=== PATIENT | female | born 1935 | race Caucasian/White ===

== ENCOUNTER 2018-05-08 21:09 | Emergency (ER) | payer OTHER ==
[~2018-05-08] VITALS: Ht 157.5 cm; Wt 69.4 kg
[~2018-05-08 21:09] MED LIST: ASPIRIN PO; BIOTIN5 M1 PO; CLOPIDOGREL; COSOPT EYE DROPS5 ML OP; KEFLEX500 MG PO; LISINOPRIL-HCT1 EAC1 PO; LUMIGAN2.5 ML OP; MULTIVITAMINS; NITROSTAT0.4 MG SL; NORCO 5-325 TA1 EACH PO; NORVASC10 MG PO; TOPROL XL100 MG PO
[2018-05-08] MEDS ORDERED: ADVAIR HFA 230M12 GM (21:31)
[2018-05-08] MEDS ORDERED: ASPIR 8181 M1 (21:32)
[2018-05-08] MEDS ORDERED: ATORVASTATIN CA40 MG (21:33)
[2018-05-08] MEDS ORDERED: IMDUR 30 MG TAB30 M1 (21:34)
[2018-05-08] MEDS ORDERED: IBUPROFEN 600600 M1 PO (22:30)
[2018-05-08] MEDS ORDERED: NORCO 5-325 TA1 EACH PO (22:30)
[2018-05-08 22:52] VITALS: BP 146/56
== END 2018-05-08 22:54 | disposition home or self-care (01) ==
LOC: M.ERS 21:09
DX: S32.502A Unspecified fracture of left pubis, initial encounter for closed fracture (principal); S32.592A Other specified fracture of left pubis, initial encounter for closed fracture; W19.XXXA Unspecified fall, initial encounter; Y93.89 Activity, other specified; Y92.89 Other specified places as the place of occurrence of the external cause; Y99.8 Other external cause status; I10 Essential (primary) hypertension; I25.10 Atherosclerotic heart disease of native coronary artery without angina pectoris; Z90.49 Acquired absence of other specified parts of digestive tract; Z90.710 Acquired absence of both cervix and uterus; Z98.62 Peripheral vascular angioplasty status; Z95.811 Presence of heart assist device; Z88.8 Allergy status to other drugs, medicaments and biological substances

== ENCOUNTER 2020-05-21 18:35 | Emergency (ER) | payer MEDICARE ==
[~2020-05-21] VITALS: Ht 157.5 cm; Wt 63.5 kg
[~2020-05-21 18:35] MED LIST changes: +ADVAIR HFA 230M12 GM; +CHILDREN'S ASPI81 M1 PO; +IBUPROFEN 600600 M1 PO; +IMDUR 30 MG TAB30 M1; +LIPITOR40 MG PO; -LISINOPRIL-HCT1 EAC1 PO; +LISINOPRIL20 MG PO; -TOPROL XL100 MG PO; +TOPROL XL50 MG PO
[2020-05-21] MEDS ORDERED: ELIQUIS2.5 MG PO (18:47)
[2020-05-21] MEDS ORDERED: ALPHAGAN P15 ML OPHTHALMIC (18:48)
[2020-05-21] MEDS ORDERED: LEVO-T25 MCG PO (18:48)
[2020-05-21] MEDS ORDERED: XALATAN2.5 M1 OPHTHALMIC (18:49)
[2020-05-21] MEDS ORDERED: TIMOPTIC5 ML OPHTHALMIC (18:49)
[2020-05-21] MEDS ORDERED: KEFLEX500 M1 PO (20:16)
[2020-05-21 20:35] VITALS: BP 154/43
== END 2020-05-21 20:35 | disposition home or self-care (01) ==
LOC: M.ERS 18:35
DX: S51.011A Laceration without foreign body of right elbow, initial encounter (principal); S16.1XXA Strain of muscle, fascia and tendon at neck level, initial encounter; S09.90XA Unspecified injury of head, initial encounter; I10 Essential (primary) hypertension; I25.10 Atherosclerotic heart disease of native coronary artery without angina pectoris; Z90.49 Acquired absence of other specified parts of digestive tract; Z90.710 Acquired absence of both cervix and uterus; Z95.5 Presence of coronary angioplasty implant and graft; Z95.0 Presence of cardiac pacemaker; Z88.8 Allergy status to other drugs, medicaments and biological substances; W18.39XA Other fall on same level, initial encounter; Y93.89 Activity, other specified; Y92.89 Other specified places as the place of occurrence of the external cause; Y99.8 Other external cause status

== ENCOUNTER 2020-09-23 16:14 | Inpatient (IN) | payer MEDICARE ==
[~2020-09-23] VITALS: Ht 157.5 cm; Wt 62.8 kg
--- NOTE | ~2020-09-23 | CON ---
[address] [address] CONSULTATION Name: NATHANIEL YUSUF Room: [address] IN .R.#: [id number] Admission: 09/23/20 Attend Phys: Nghia Livingston MD Discharge: Date of : 37 Report #: [id number] THIS REPORT FOR: //name// cc: Alejandro Carbajal MD, Matthew W. MD ~ DATE OF SERVICE: 09/24/2020 HISTORY OF PRESENT ILLNESS: This is a pleasant 85-year-old female with past medical history of CHF, coronary artery disease; AFib, on chronic anticoagulation, who presented to my clinic yesterday with chief complaints of dark tarry stools. The patient had reported the dark tarry stools for a week and she reports having about 2 bowel movements per day. She denies any abdominal pain, nausea, vomiting. The patient did report extreme fatigue, dizziness and lethargy. The patient looked pale and chronically ill and was therefore referred to an inpatient admission to [facility]. In the ER in addition to anemia, the patient was found to have profound hyponatremia with a sodium of 115 on presentation. The patient continues to report weakness in the morning today. PAST MEDICAL HISTORY: Coronary artery disease, atrial fibrillation, on chronic anticoagulation, CHF. PAST SURGICAL HISTORY: The patient has had pacemaker placed recently. Prior to that, has had a remote history of appendectomy, tonsillectomy, hysterectomy. SOCIAL HISTORY: The patient denies smoking, alcohol or recreational drug use. FAMILY HISTORY: No family history of colon cancer or [place] related neoplasia. REVIEW OF SYSTEMS: Comprehensive 10-point review of systems is negative except for what was mentioned in the HPI. PHYSICAL EXAMINATION: VITAL SIGNS: Temperature 36.6, pulse rate 60, respirations 14, blood pressure 121/49, pulse ox 96%. GENERAL: The patient is alert, awake, oriented x 3. HEENT: Pupils are equal, round, reactive to light and accommodation. Mucous membranes are moist. There is no congestion. LUNGS: Clear to auscultation bilaterally. CARDIOVASCULAR: Rate and rhythm regular, S1, S2 present. ABDOMEN: Soft. There is no distention, guarding or rigidity. EXTREMITIES: Warm, well perfused. LABORATORY DATA: Hemoglobin 8.0, hematocrit 23.6, platelet count 179, [place] [address] CONSULTATION Name: NATHANIEL YUSUF Room: [address]#: [id number] Admission: 09/23/20 Attend Phys: Nghia Livingston MD Discharge: Date of : 37 Report #: [id number] 6.8. Sodium 125, potassium 4.4, chloride 94, bicarbonate 25, BUN 17, creatinine 1.2. ASSESSMENT AND PLAN: 1. Pleasant 85-year-old female on chronic anticoagulation, presenting with melena. The patient also noted to have profound hyponatremia. Since patient's sodium is only 125, I would defer elective endoscopy until it is at least 130. Place the patient on a regular diet today and hopefully with that her sodium should improve and we can perform the endoscopy tomorrow. 2. Hyponatremia. The patient reports she was found to be profoundly hypothyroid when she was diagnosed with hyponatremia last year at [facility]. She is unsure if she is taking her thyroid medication. I would recommend checking it in the morning. Thank you for this consultation. By: 1121 [id number] Cade MD /akhil
[~2020-09-23 16:14] MED LIST changes: +ALPHAGAN P15 ML OPHTHALMIC; +ASPIR 8181 M1; +ATORVASTATIN CA40 MG; -CHILDREN'S ASPI81 M1 PO; +ELIQUIS2.5 MG PO; +KEFLEX500 M1 PO; +LEVO-T25 MCG PO; -LIPITOR40 MG PO; +TIMOPTIC5 ML OPHTHALMIC; +XALATAN2.5 M1 OPHTHALMIC
[2020-09-23 16:38] VITALS: BP 150/50
[2020-09-23] MEDS ORDERED: OMEPRAZOLE20 M1 PO (16:45)
[2020-09-23 17:07] LABS: ABSOLUTE EOSINOPHILS 0.1 thou/uL (0.0-0.7); ABSOLUTE LYMPHOCYTES 1.8 thou/uL (0.8-5.3); ABSOLUTE MONOCYTES 0.8 thou/uL (0.0-1.2); ABSOLUTE NEUTROPHILS 6.9 thou/uL (1.6-8.1); BASOPHILS 0.4 %; EOSINOPHILS 0.6 %; HEMATOCRIT 28.5 % (37.0-47.0); HEMOGLOBIN 9.7 gm/dL (12.0-15.0); LYMPHOCYTES 18.5 %; MCH 31.1 pg (26.0-34.0); MCHC 33.9 g/dL (28.0-37.0); MCV 91.7 fL (80.0-100.0); MONOCYTES 8.4 %; MPV 8.4 fl. (7.2-11.1); NUCLEATED RBCS 0 /100WBC; PLATELET COUNT* 213 thou/uL (150-400); POLYS 72.1 %; RBC 3.11 mil/uL (4.20-5.00); RDW-CV 16.3 % (10.5-14.5); WBC 9.5 thou/uL (4.0-11.0)
[2020-09-23 17:16] LABS: CALCIUM 8.4 mg/dL (8.5-10.1); CREATININE 1.3 mg/dL (0.6-1.3); POTASSIUM 4.7 mmol/L (3.5-5.1)
[2020-09-23 17:21] LABS: ALBUMIN 3.7 g/dL (3.4-5.0); TOTAL BILIRUBIN 0.5 mg/dL (<0.1-1.0); TOTAL PROTEIN 6.9 g/dL (6.4-8.2)
[2020-09-23 19:01] LABS: URINE BILIRUBIN NEGATIVE (Negative); URINE BLOOD NEGATIVE (Negative); URINE CLARITY CLEAR; URINE COLOR YELLOW; URINE GLUCOSE-RANDOM NEGATIVE (Negative); URINE KETONES NEGATIVE (Negative); URINE LEUKOCYTES-REFLEX TRACE (Negative); URINE NITRITE-REFLEX NEGATIVE (Negative); URINE PROTEIN NEGATIVE (Negative); URINE SPECIFIC GRAVITY 1.015 (1.005-1.030); URINE UROBILINOGEN 0.2 E.U./dl (0.2-1.0)
[2020-09-23 19:11] LABS: BACTERIA-REFLEX 1-9 Few /HPF (None Seen); CASTS None Seen /LPF (None Seen); CRYSTALS None Seen /LPF (None Seen); SQUAMOUS 0-3 Few /LPF (0-3); URINE RBC 0-2 Rare /HPF (0-2); URINE WBC-REFLEX 0-5 Rare /HPF (0-5)
[2020-09-23 19:30] VITALS: BP 114/39
[2020-09-23 19:40] VITALS: BP 126/36
[2020-09-23 20:07] LABS: HEMATOCRIT 24.4 % (37.0-47.0); HEMOGLOBIN 8.3 gm/dL (12.0-15.0)
[2020-09-23 20:17] LABS: CREATININE 1.1 mg/dL (0.6-1.3); POTASSIUM 4.6 mmol/L (3.5-5.1)
[2020-09-24] VITALS: BP 130/33
[2020-09-24 04:00] VITALS: BP 118/44
[2020-09-24 04:29] LABS: HEMATOCRIT 23.6 % (37.0-47.0); MCH 30.6 pg (26.0-34.0); MCHC 33.9 g/dL (28.0-37.0); MCV 90.3 fL (80.0-100.0); RBC 2.61 mil/uL (4.20-5.00); RDW-CV 16.2 % (10.5-14.5); WBC 6.8 thou/uL (4.0-11.0)
[2020-09-24 04:55] LABS: CREATININE 1.2 mg/dL (0.6-1.3); MAGNESIUM 1.8 mg/dL (1.8-2.4); POTASSIUM 4.4 mmol/L (3.5-5.1)
[2020-09-24 08:00] VITALS: BP 121/49
[2020-09-24 11:36] LABS: HEMATOCRIT 28.9 % (37.0-47.0); HEMOGLOBIN 9.6 gm/dL (12.0-15.0)
[2020-09-24 12:13] LABS: CALCIUM 8.8 mg/dL (8.5-10.1); CREATININE 1.2 mg/dL (0.6-1.3); POTASSIUM 4.6 mmol/L (3.5-5.1)
[2020-09-24 16:11] VITALS: BP 135/72
[2020-09-24 19:59] LABS: HEMATOCRIT 24.5 % (37.0-47.0); HEMOGLOBIN 8.3 gm/dL (12.0-15.0)
[2020-09-24 20:00] VITALS: BP 147/52
[2020-09-24 20:03] LABS: CALCIUM 8.1 mg/dL (8.5-10.1); CREATININE 1.5 mg/dL (0.6-1.3); POTASSIUM 4.3 mmol/L (3.5-5.1)
[2020-09-25] VITALS: BP 143/37
[2020-09-25 04:00] VITALS: BP 162/44
[2020-09-25 04:12] LABS: HEMATOCRIT 25.4 % (37.0-47.0); HEMOGLOBIN 8.5 gm/dL (12.0-15.0); MCH 30.6 pg (26.0-34.0); MCHC 33.5 g/dL (28.0-37.0); MCV 91.1 fL (80.0-100.0); MPV 8.8 fl. (7.2-11.1); RBC 2.78 mil/uL (4.20-5.00); RDW-CV 16.4 % (10.5-14.5)
[2020-09-25 04:36] LABS: CALCIUM 8.4 mg/dL (8.5-10.1); CREATININE 1.4 mg/dL (0.6-1.3); MAGNESIUM 1.7 mg/dL (1.8-2.4); POTASSIUM 4.3 mmol/L (3.5-5.1)
[2020-09-25 08:00] VITALS: BP 109/53
[2020-09-25 11:41] VITALS: BP 139/88
[2020-09-25 15:45] LABS: CALCIUM 8.6 mg/dL (8.5-10.1); CREATININE 1.4 mg/dL (0.6-1.3); MAGNESIUM 1.6 mg/dL (1.8-2.4); POTASSIUM 4.2 mmol/L (3.5-5.1)
[2020-09-25 16:15] VITALS: BP 132/41
[2020-09-25 20:00] VITALS: BP 144/42
[2020-09-26] VITALS: BP 132/41
[2020-09-26 04:00] VITALS: BP 144/41
[2020-09-26 04:31] LABS: HEMATOCRIT 27.5 % (37.0-47.0); HEMOGLOBIN 9.5 gm/dL (12.0-15.0); MCH 31.5 pg (26.0-34.0); MCHC 34.5 g/dL (28.0-37.0); MCV 91.1 fL (80.0-100.0); RBC 3.02 mil/uL (4.20-5.00); RDW-CV 16.7 % (10.5-14.5); WBC 8.1 thou/uL (4.0-11.0)
[2020-09-26 05:05] LABS: CALCIUM 8.4 mg/dL (8.5-10.1); CREATININE 1.5 mg/dL (0.6-1.3); MAGNESIUM 1.6 mg/dL (1.8-2.4); POTASSIUM 4.6 mmol/L (3.5-5.1)
[2020-09-26 08:00] VITALS: BP 155/35
[2020-09-26] MEDS ORDERED: OMEPRAZOLE40 MG PO (09:58)
--- NOTE | 2020-09-26 11:30 | EKG ---
[place] [address] ELECTROCARDIOGRAM REPORT Name: NATHANIEL YUSUF Room: [address] IN .R.#: [id number] Admission: 09/23/20 Attend Phys: Nghia Livingston, Discharge: Date of : 37 Date of Service: 09/23/20 1719 Report #: [id number] THIS REPORT FOR: //name// [facility] ED Test Date: 2020-09-23 Test Time: 17:19:06 Pat Name: NATHANIEL YUSUF Department: Room: [facility] Gender: F Sld Educational Aide: : 1935 Requested By: Amos Hayes Order Number: [id number] MD: Dimitri Brennan Measurements Intervals [place] Rate: 60 P: -75 [place]: 53 QRS: -18 QRSD: 115 T: 48 QT: 449 QTc: 449 Interpretive Statements Sinus or ectopic atrial rhythm artifact noted prolonged [place] interval Nonspecific intraventricular conduction delay Compared to ECG 05/26/2006 11:42:37 no change Electronically Signed On 09-26-2020 11:29:47 LYE PEEL OPERATOR by Dimitri Brennan [email or web address] <ELECTRONICALLY SIGNED> By: Dimitri Brennan MD, FACC 09/26/20 1129 1719 Dimitri Brennan MD, [facility] /EPI
[2020-09-26 11:32] VITALS: BP 155/35
[2020-09-26 11:52] VITALS: BP 155/35
== END 2020-09-26 11:45 | disposition home or self-care (01) | DRG 381 ==
LOC: M.ERS 16:14 → M.TBA-ER 17:52 → M.2W 17:52
PROVIDERS: Emergency Medicine Emergency Medical Services; ADMIT Internal Medicine; ATTEND Internal Medicine
PROC: 0DB58ZX Excision of Esophagus, Via Natural or Artificial Opening Endoscopic, Diagnostic (ICD-10-PCS; principal; 2020-09-25)
DX: K22.70 Barrett's esophagus without dysplasia (principal); E87.1 Hypo-osmolality and hyponatremia; D62 Acute posthemorrhagic anemia; D68.69 Other thrombophilia; I25.10 Atherosclerotic heart disease of native coronary artery without angina pectoris; I48.91 Unspecified atrial fibrillation; E86.1 Hypovolemia; K92.2 Gastrointestinal hemorrhage, unspecified; I12.9 Hypertensive chronic kidney disease with stage 1 through stage 4 chronic kidney disease, or unspecified chronic kidney disease; N18.30 Chronic kidney disease, stage 3 unspecified; I73.9 Peripheral vascular disease, unspecified; Z20.828 Contact with and (suspected) exposure to other viral communicable diseases; Z90.49 Acquired absence of other specified parts of digestive tract; Z90.710 Acquired absence of both cervix and uterus; Z95.5 Presence of coronary angioplasty implant and graft; Z95.0 Presence of cardiac pacemaker; Z88.8 Allergy status to other drugs, medicaments and biological substances; Z79.01 Long term (current) use of anticoagulants; Z79.899 Other long term (current) drug therapy

== ENCOUNTER 2020-10-15 21:25 | Inpatient (IN) | payer MEDICARE ==
[~2020-10-15] VITALS: Ht 157.5 cm; Wt 63.5 kg
[~2020-10-15 21:25] MED LIST changes: -ASPIR 8181 M1; -ATORVASTATIN CA40 MG; +CHILDREN'S ASPI81 M1 PO; +LIPITOR40 MG PO; +OMEPRAZOLE20 M1 PO; +OMEPRAZOLE40 MG PO
[2020-10-15 21:30] VITALS: BP 148/51
[2020-10-15 21:53] LABS: ABSOLUTE EOSINOPHILS 0.1 thou/uL (0.0-0.7); ABSOLUTE LYMPHOCYTES 1.7 thou/uL (0.8-5.3); ABSOLUTE MONOCYTES 0.8 thou/uL (0.0-1.2); ABSOLUTE NEUTROPHILS 4.5 thou/uL (1.6-8.1); BASOPHILS 0.6 %; EOSINOPHILS 0.7 %; HEMATOCRIT 28.5 % (37.0-47.0); HEMOGLOBIN 9.6 gm/dL (12.0-15.0); LYMPHOCYTES 24.2 %; MCH 31.7 pg (26.0-34.0); MCHC 33.8 g/dL (28.0-37.0); MCV 93.9 fL (80.0-100.0); MONOCYTES 11.1 %; MPV 8.9 fl. (7.2-11.1); NUCLEATED RBCS 0 /100WBC; PLATELET COUNT* 177 thou/uL (150-400); POLYS 63.4 %; RBC 3.03 mil/uL (4.20-5.00); RDW-CV 17.7 % (10.5-14.5); WBC 7.2 thou/uL (4.0-11.0)
[2020-10-15 22:02] LABS: CALCIUM 8.8 mg/dL (8.5-10.1); CREATININE 1.6 mg/dL (0.6-1.3); POTASSIUM 4.3 mmol/L (3.5-5.1)
[2020-10-15 22:06] LABS: ALBUMIN 3.5 g/dL (3.4-5.0); MAGNESIUM 1.8 mg/dL (1.8-2.4); TOTAL BILIRUBIN 0.5 mg/dL (<0.1-1.0); TOTAL PROTEIN 6.4 g/dL (6.4-8.2)
[2020-10-15 22:46] LABS: URINE BILIRUBIN NEGATIVE (Negative); URINE BLOOD NEGATIVE (Negative); URINE CLARITY CLEAR; URINE COLOR YELLOW; URINE GLUCOSE-RANDOM NEGATIVE (Negative); URINE KETONES NEGATIVE (Negative); URINE LEUKOCYTES-REFLEX 1+ (Negative); URINE NITRITE-REFLEX NEGATIVE (Negative); URINE PROTEIN NEGATIVE (Negative); URINE SPECIFIC GRAVITY 1.015 (1.005-1.030); URINE UROBILINOGEN 0.2 E.U./dl (0.2-1.0)
[2020-10-15 22:53] LABS: HYALINE CASTS 0-3 Few /LPF (None Seen); MUCUS None Seen strn/LPF (None Seen); SQUAMOUS 4-10 Moderate /LPF (0-3); URINE WBC-REFLEX 6-15 Few /HPF (0-5)
[2020-10-15 22:54] LABS: BACTERIA-REFLEX 1-9 Few /HPF (None Seen); CRYSTALS None Seen /LPF (None Seen); URINE RBC 0-2 Rare /HPF (0-2)
[2020-10-16 02:48] VITALS: BP 142/50
[2020-10-16 08:12] VITALS: BP 142/44
[2020-10-16 11:13] LABS: CALCIUM 8.4 mg/dL (8.5-10.1); CREATININE 1.3 mg/dL (0.6-1.3); POTASSIUM 4.1 mmol/L (3.5-5.1)
[2020-10-16 11:30] LABS: TOTAL BILIRUBIN 0.4 mg/dL (<0.1-1.0); TOTAL PROTEIN 5.9 g/dL (6.4-8.2)
--- NOTE | 2020-10-16 12:51 | EKG ---
[place] [address] ELECTROCARDIOGRAM REPORT Name: NATHANIEL YUSUF Room: [address] ADM IN .R.#: [id number] Admission: 10/16/20 Attend Phys: Rodriguez Hutchison Discharge: Date of : 37 Date of Service: 10/15/20 2146 Report #: [id number] THIS REPORT FOR: //name// [facility] ED Test Date: 2020-10-15 Test Time: 21:46:27 Pat Name: NATHANIEL YUSUF Department: Room: [facility] Gender: F Photogrammetric Surveyor: : 1935 Requested By: Barbara Claudio Order Number: [id number] MD: Solomon Bird Measurements Intervals [place] Rate: 68 P: -65 [place]: 174 QRS: -26 QRSD: 115 T: 69 QT: 398 QTc: 424 Interpretive Statements Sinus or ectopic atrial rhythm with first-degree AV block Nonspecific intraventricular conduction delay Compared to ECG 09/23/2020 17:19:06 First degree AV block persists Electronically Signed On 10-16-2020 12:51:26 SENIOR FINANCE MANAGER by Solomon Bird [email or web address] <ELECTRONICALLY SIGNED> By: Solomon Bird MD, FACC 10/16/20 1251 2146 Solomon Bird MD, FAC /EPI
[2020-10-16 21:02] VITALS: BP 132/48
[2020-10-17] VITALS: BP 136/65
[2020-10-17 04:00] VITALS: BP 144/47
[2020-10-17 08:30] VITALS: BP 129/43
[2020-10-17 09:00] VITALS: BP 137/53
[2020-10-17 09:08] LABS: ABSOLUTE LYMPHOCYTES 1.6 thou/uL (0.8-5.3); ABSOLUTE MONOCYTES 0.7 thou/uL (0.0-1.2); BASOPHILS 0.4 %; EOSINOPHILS 0.6 %; HEMATOCRIT 28.4 % (37.0-47.0); HEMOGLOBIN 9.8 gm/dL (12.0-15.0); LYMPHOCYTES 21.4 %; MCH 32.1 pg (26.0-34.0); MCHC 34.4 g/dL (28.0-37.0); MCV 93.4 fL (80.0-100.0); MONOCYTES 9.7 %; MPV 9.1 fl. (7.2-11.1); NUCLEATED RBCS 0 /100WBC; PLATELET COUNT* 203 thou/uL (150-400); POLYS 67.9 %; RBC 3.04 mil/uL (4.20-5.00); RDW-CV 17.9 % (10.5-14.5); WBC 7.4 thou/uL (4.0-11.0)
[2020-10-17 09:23] LABS: ALBUMIN 3.5 g/dL (3.4-5.0); CALCIUM 8.6 mg/dL (8.5-10.1); CREATININE 1.3 mg/dL (0.6-1.3); POTASSIUM 4.5 mmol/L (3.5-5.1); TOTAL BILIRUBIN 0.5 mg/dL (<0.1-1.0); TOTAL PROTEIN 6.6 g/dL (6.4-8.2)
[2020-10-17 17:25] VITALS: BP 145/46
[2020-10-17 22:00] VITALS: BP 130/46
[2020-10-18 02:08] LABS: CORTISOL AM 16.6 ug/dL (6.2-19.4)
[2020-10-18 04:00] VITALS: BP 143/45
[2020-10-18 05:19] LABS: HEMOGLOBIN 8.3 gm/dL (12.0-15.0); MCH 31.4 pg (26.0-34.0); MCHC 33.2 g/dL (28.0-37.0); MCV 94.4 fL (80.0-100.0); MPV 9.8 fl. (7.2-11.1); RBC 2.65 mil/uL (4.20-5.00); RDW-CV 17.7 % (10.5-14.5); WBC 7.1 thou/uL (4.0-11.0)
[2020-10-18 05:34] LABS: CALCIUM 8.6 mg/dL (8.5-10.1); CREATININE 1.2 mg/dL (0.6-1.3); MAGNESIUM 1.8 mg/dL (1.8-2.4); POTASSIUM 4.6 mmol/L (3.5-5.1); TOTAL BILIRUBIN 0.4 mg/dL (<0.1-1.0); TOTAL PROTEIN 5.9 g/dL (6.4-8.2)
[2020-10-18] MEDS ORDERED: MACROBID 100 M100 MG PO (07:28)
[2020-10-18] MEDS ORDERED: SODIUM CHLORIDE1 G2 PO (07:28)
[2020-10-18 08:00] VITALS: BP 147/48
[2020-10-18 12:08] VITALS: BP 147/48
== END 2020-10-18 12:57 | disposition home health service (06) | DRG 640 ==
LOC: M.ERS 21:25 → M.TBA-ER 10-16 02:13 → M.2W 10-16 02:13 → M.TBA-ER 10-16 02:46 → M.2W 10-16 02:53
PROVIDERS: Emergency Medicine; Internal Medicine; Nurse Practitioner; ADMIT Internal Medicine; ATTEND Internal Medicine
DX: E86.0 Dehydration (principal); N17.0 Acute kidney failure with tubular necrosis; N39.0 Urinary tract infection, site not specified; I48.20 Chronic atrial fibrillation, unspecified; D68.69 Other thrombophilia; E87.1 Hypo-osmolality and hyponatremia; I12.9 Hypertensive chronic kidney disease with stage 1 through stage 4 chronic kidney disease, or unspecified chronic kidney disease; N18.32 Chronic kidney disease, stage 3b; I25.10 Atherosclerotic heart disease of native coronary artery without angina pectoris; Z20.828 Contact with and (suspected) exposure to other viral communicable diseases; Z66 Do not resuscitate; Z88.8 Allergy status to other drugs, medicaments and biological substances; Z90.710 Acquired absence of both cervix and uterus; Z90.49 Acquired absence of other specified parts of digestive tract; Z95.5 Presence of coronary angioplasty implant and graft; Z95.0 Presence of cardiac pacemaker; Z79.82 Long term (current) use of aspirin; Z79.899 Other long term (current) drug therapy